=== PATIENT | male | born 1965 | race Caucasian/White ===

== ENCOUNTER 2016-11-12 09:29 | Day surgery (SDC) | payer OTHER ==
[~2016-11-12 09:29] MED LIST: LACTATED RINGERS 1,000 ML IV SCH
[2016-11-12] MEDS ORDERED: LACTATED RINGERS 1,000 ML ONE (09:34)
[2016-11-12] MEDS ORDERED: IV START KIT ONE (09:34)
[2016-11-12] MEDS ORDERED: PROPOFOL 20 ML IV ONE (10:25)
--- NOTE | 2016-11-15 13:13 | SURGPATH ---
[facility] [address] [place] [id number] Patient Name: GARRY WISE JR MR#: [id number] : 1965 Gender: M Specimen #: [id number] Collected: 11/12/2016 Received: 11/14/2016 Reported: 11/15/2016 Submitting Phys: NATALIE PALACIOS Copy To Phys: [facility] TIM HINOJOSA Clinical History / Pre-Operative Diagnosis: Hemoccult + stool; family history of colon CA Specimen Source / Surgical Procedure Performed: #1-mid transverse colon polyp; #2-sigmoid polyp at 30 cm; #3-sigmoid polyp at 12 cm x2+1 Interpretation: 1. MID TRANSVERSE COLON POLYP: - BENIGN COLONIC MUCOSA WITH NO SIGNIFICANT PATHOLOGIC CHANGES. 2. SIGMOID POLYP AT 30 CM: - HYPERPLASTIC POLYP. 3. SIGMOID POLYP AT 12 CM: - TUBULAR ADENOMA. Electronically Signed Out Faby Durán M.D. Gross Description: #1 The specimen is received in a formalin filled container labeled with the patient's name and "midtransverse colon polyp". Two schneider biopsies are 0.4 and 0.5 cm. Totally embedded in cassette #1. #2 The specimen is received in a formalin filled container labeled with the patient's name and "sigmoid polyp at 30 cm". A single schneider biopsy is 0.3 cm. Totally embedded in cassette #2. #3 The specimen is received in a formalin filled container labeled with the patient's name and "sigmoid polyp at 12 cm x3". Three cespedes-schneider biopsies are 0.3-0.6 cm. Totally embedded in cassette #3. Mendez Condon PJennifer Microscopic Description: 1. Sections of the mid transverse colon polyp show fragments of benign colonic mucosa. No definitive adenomatous or hyperplastic changes are identified on the initial levels. Deeper levels of the tissue show similar findings. 2. Sections of the sigmoid colon polyp at 30 cm show superficial tufting of the columnar epithelium and crypt serration. There is no evidence of dysplasia or malignancy. 3. Sections of the sigmoid polyp at 12 cm show three fragments of colonic mucosa, one of which displays adenomatous changes without evidence of high-grade dysplasia or invasive carcinoma. The remaining two fragments are artifactually distorted with no definitive evidence of dysplasia. 1: [id number] 2: [id number] 3: 44569 D12.5 K63.5
== END 2016-11-12 11:20 | disposition home or self-care (01) ==
LOC: SDC 09:29
PROVIDERS: ATTEND Internal Medicine Gastroenterology
PROC: 0DBM8ZX Excision of Descending Colon, Via Natural or Artificial Opening Endoscopic, Diagnostic (ICD-10-PCS; principal; 2016-11-12)
PROC: 0DBN8ZX Excision of Sigmoid Colon, Via Natural or Artificial Opening Endoscopic, Diagnostic (ICD-10-PCS; 2016-11-12)
DX: D12.5 Benign neoplasm of sigmoid colon (principal); D12.4 Benign neoplasm of descending colon; Z80.0 Family history of malignant neoplasm of digestive organs; F17.210 Nicotine dependence, cigarettes, uncomplicated; Z95.810 Presence of automatic (implantable) cardiac defibrillator; I25.10 Atherosclerotic heart disease of native coronary artery without angina pectoris; E11.9 Type 2 diabetes mellitus without complications; F32.9 Major depressive disorder, single episode, unspecified; I25.9 Chronic ischemic heart disease, unspecified; E66.9 Obesity, unspecified; Z68.33 Body mass index [BMI] 33.0-33.9, adult; I10 Essential (primary) hypertension; E78.5 Hyperlipidemia, unspecified; Z79.84 Long term (current) use of oral hypoglycemic drugs; J44.9 Chronic obstructive pulmonary disease, unspecified
CPT/HCPCS: 45385; J7120